=== PATIENT | male | born 1965 | race African-American/Black ===

== ENCOUNTER 2024-12-02 09:33 | Emergency (ER) | payer MEDICARE, MEDICAID, SELFPAY ==
[2024-12-02] VITALS (25 sets, daily range): BP systolic 152–200; BP diastolic 100–124; PULSE 67–89; RESP 11–29; TEMP 36.7; O2SAT 97–100
--- OUTSIDE RECORDS SUMMARY | 2024-12-02 10:15 | XMS_ITS | CONTINUITY OF CARE DOCUMENT ---
Author Name chayito jessicamyrtle Address Unknown Organization [facility] [facility] Address [address] [facility] [address] [place] [address] Phone [phone] Care Team Providers Care Supervisor Bit And Shank Department Name Role Phone Porter KLEIN, Kathy Unavailable [phone] Porter KLEIN, Selvinammaashli Unavailable [phone] ZOHAIB KLEIN, ROE Unavailable [phone] INSURANCE PROVIDERS Payer name Policy type / Coverage type [place] red libertarian ID [place] Medicare HEALTHCARE AND FAMILY SERVICES Medicaid 2 [id number] [place] [id number]
--- OUTSIDE RECORDS SUMMARY | 2024-12-02 12:15 | XMS_ITS | CONTINUITY OF CARE DOCUMENT ---
Author Name chayito jessicamyrtle Address Unknown Organization [place] [facility] Address [address] [facility] [address] [place] [address] Phone [phone] Care Team Providers Care Press Operator Printing Name Role Phone Porter KLEIN, Kathy Unavailable Porter KLEIN, Selvinammaashli Unavailable ZOHAIB KLEIN, ROE Unavailable [phone] INSURANCE PROVIDERS Payer name Policy type / Coverage type [place] red democrat ID [place] Medicare HEALTHCARE AND FAMILY SERVICES Medicaid 2 [id number] [place] [id number]
--- OUTSIDE RECORDS SUMMARY | 2024-12-02 12:15 | XMS_ITS ---
Author Organization [facility] Address [address] [place] [address] Care Team Providers Care Hypoid Gear Generator Name Role Phone NakulSuzette Primary Care Provider [phone] Vicky Jeanetteflorida Unavailable [phone] Allergies No Known Allergies Results Component Value Reference Range Notes Breathalyzer Reviewed date:11/18/2024 01:23:04 PM Interpretation: Performing Lab: Notes/Report: ELLEN 0.000 QuantiFERON-TB Gold Plus ([id number]) Reviewed date:11/23/2024 08:04:09 AM Interpretation:Normal Performing Lab:[facility] [place], [address] [facility], [place], Phone - [phone], Director - Sahra Notes/Report: QuantiFERON Incubation Incubation performed. QuantiFERON-TB Gold Plus Negative Negative No response to M tuberculosis antigens detected. Infection with M tuberculosis is unlikely, but high risk individuals should be considered for additional testing (ATS/IDSA/CDC Clinical Practice Guidelines, 2017). The reference range is an Antigen minus Nil result of <0.35 IU/mL. Chemiluminescence immunoassay methodology QuantiFERON Criteria QuantiFERON-TB Gold Plus is a qualitative indirect test for M tuberculosis infection (including disease) and is intended for use in conjunction with risk assessment, radiography, and other medical and diagnostic evaluations. The QuantiFERON-TB Gold Plus result is determined by subtracting the Nil value from either TB antigen (Ag) value. The Mitogen tube serves as a control for the test. QuantiFERON TB1 Ag Value 0.05 QuantiFERON TB2 Ag Value 0.05 QuantiFERON Nil Value 0.08 QuantiFERON Mitogen Value >10.00 12 Panel Urine Drug Screen Reviewed date:11/18/2024 12:51:23 PM Interpretation: Performing Lab: Notes/Report: THC neg ANOOP neg MOP (OPI) neg AMP neg MET neg BAR neg BZO neg MDMA neg MTD neg OXY neg PCP neg BUP neg REASON FOR VISIT MRU- Physical Medications Medication SIG (Take, Route, Frequency, Duration) Notes Start Date End Date Status hydroCHLOROthiazide 50 MG 1 tablet in th e morning Orally Once a day Active Pantoprazole Sodium 40 MG 1 tablet Orally Once a day Active FLUoxetine HCl 20 MG 1 capsule Orally On a day Active Social History Tobacco Use: Social History Observation Description Date Details (start date - stop date) Current Smoker NA - NA Tobacco Control (Standard) Question Answer Notes Tobacco use: Current every day smoker Additional Findings: Tobacco user Moderate cigar ette smoker (10-19 cigs/day) Problems Problem Type SNOMED Code ICD Code Onset Dates Problem Status W/U Status Risk Notes Problem Tobacco user (735068544) Nicotine dependence, unspecified, uncomplicated (F17.200) Active confirmed Vital Signs Weight 130.6 lbs 11/18/2024 Height 68.5 in 11/18/2024 BMI 19.57 kg/m2 11/18/2024 Blood pressure systolic 152 mm Hg 11/19/19 25 Blood pressure diastolic 94 mm Hg 025 Heart Rate 64 /min 11/18/2024 Oximetry 100 % 11/18/2024 Temperature 98.0 degrees Fahrenheit 11/19/19 25 Respiratory Rate 16 /min 11/18/2024 Encounters Encounter Location Date Provider Diagnosis [place] [address] [facility] [place] [address] 11/18/2024 Griselda Perry Routine general medical examination at a health care facility Z00.00 ; Tuberculosis screening Z11.1 and Nicotine dependence, unspecified, uncomplicated F17.200 Assessments Encounter Date Diagnosis (ICD Code) Assessment Notes Treatment Notes Treatment Clinical Notes Section Notes 11/18/2024 Routine general medical examination at a health care facility (ICD-10 - Z00.00) Stable for admission. Continue MRU protocol. Encouraged regular f/u with PCP for recommended screenings and physicals. 11/18/2024 Tuberculosis screening (ICD-10 - Z11.1) 11/18/2024 Nicotine dependence, unspecified, uncomplicated (ICD-10 - F17.200) Plan Of Treatment Treatment Notes Assessment Notes Routine general medical exam ination at a health care facility Stable for admission. Continue MRU protocol. Encouraged regular f/u with PCP for recommended screenings and physicals. Next Appt Details Follow Up: prn, Reason: Provider Name:Cortes Aleshia Destincyrus contreras, 12/06/2024 08:40:00 AM, [address] [place] [address] [address], [place], [address], Progress Notes * Matt MCKEONdDOB:1964 (59 yo M)Acc No.[id number]:11/18/2024 Patient: Prasanna AVELAR Provider: Rodolfo Perry, MSN, FOOD SAMPLER, PAINTER SKI EDGE-C :1965 A ge:59 Y S ex:Male Date:11/18/2024 Address:[address] [place] [address] [place], [facility] Pcp:Suzette Mota Subjective: * Chief Complaints: * M RU- Physical * HPI: H IV Risk Assessment Screening: Sexual Risk Behaviors: 1 . Are you sexually active? (If no skip question 2) N o HIV/AIDS/Hepatitis Risk Assessment 1 . Have you ever shared needles or equipment for injecting drugs, tattoos, or piercings with others? N o 2 . Have you ever had unprotected sex with someone you think might be infected with an STI or HIV (such as someone who injected drugs, who was diagnoed with or treated for an STI or hepatitis, has had mulitiple sex partners, or who has exchanged sex for drugs or money)? N o 3 . Have you ever had unprotected vaginal or anal intercourse with more than 1 sex partner? Y es 4 . Have you ever been diagnosed with or treated for an STI, hepatitis, or tuberculosis? Y es 5 . Have you ever had an unexplained fever or illness of unknown cause (not including the common cold)? N o 6 . Have you ever been told that you have an infection related to a weak immune system ? N o 7 . If YES to any of the above (including sexual risk behaviors), have you been tested in the past year for HIV/AIDS and/or Hepatitis C? Y es Encouraged HIV/AIDS and/or Hep C testing while in residential. Required for Residential Admits. D epression Screening: PHQ-9 L ittle interest or pleasure in doing things?More than half the days F eeling down, depressed, or hopeless N early every day T rouble falling or staying asleep, or sleeping too much S everal days F eeling tired or having little energy M ore than half the days P oor appetite or overeating S everal days F eeling bad about yourself or that you are a failure, or have let yourself or your family down M ore than half the days T rouble concentrating on things, such as reading the newspaper or watching television N early every day M oving or speaking so slowly that other people could have noticed; or the opposite, being so fidgety or restless that you have been moving around a lot more than usual M ore than half the days T houghts that you would be better off or of hurting yourself in some way N early every day (Consider Suicide Assessment Risk) T otal Score 1 9 I nterpretation M oderately Severe Depression S creening: Anza Suicide Severity Rating Scale (LF) D o you want to initiate with S creener form 1 . Wish to be : Have you wished you were or wished you could go to sleep and not wake up? N o 2 . Suicidal Thoughts: Have you actually had any thoughts of killing yourself? Y es 3 . Suicidal Thoughts with Method (without Specific Plan or Intent to Act): Have you been thinking about how you might do this? N o 4 . Suicidal Intent (without Specific Plan): Have you had these thoughts and had some intention of acting on them? N o 5 . Suicide Intent with Specific Plan: Have you started to work out or worked out the details of how to kill yourself? Do you intend to carry out this plan? N o 6 . Suicide Behavior Question: Have you ever done anything,started to do anything, or prepared to end your life? N o I nterpretation: L ow Risk D epression Screening PHQ9: c/o PHQ-2 (2015 Edition). PHQ9 D epression Screening Finding P ositive F ollow-up Depression W arm hand-off to staff C SSRS Interpretation and Follow Up Plan: CSSRS Interpretation and Follow Up Plan C SSRS Screen documented using SF Y es R isk Disposition from SF L ow - No Follow Up Plan Required F ollow Up Plan N o Follow Up Plan required at this time. S bridget: Mr. Mckeon presents for a routine physical. Will be admitted to the MRU today. Discharged from [facility] psychiatric unit earlier today. Drug of choice: cocaine - using 3 times per week with last use 13 days ago. Has primary care provider but does not recall name. * ROS: B asic ROS: Denies W eight loss or gain. D enies C hange in appetite. D enies S weats. I nsomnia D enies. A dmits A nxiety. A dmits?Depressed Mood. D enies S uicidal Thoughts. * Medical History: * Surgical History: Kemal rudd Past Surgical History * Hospitalization/Major Diagno stic Procedure: S I 11/2024 * Family History: F ather: , unknown cancer. M other: , diabetic. S iblings: , 1 brother who passed from CHF. 2 son(s) , 4 daughter(s) . . * Social History: P rimary Social History: L iving Arrangement L iving Arrangement: H omeless Alcohol Use A lcohol Use Frequency: N ever Illicit Substance Usage I llicit Substance Usage: Y es S ubstance Used: C ocaine F requency Cocaine is used: t hree times a week. I nterested in quitting: Y es Employment Status E mployment Status: O n Disability Single Question Alcohol Screening H ow may times in the past year have you had (4 for women, or 5 for men) or more drinks in a day? 3 T obacco Use: T obacco Control (Standard) T obacco use: C urrent every day smoker A dditional Findings: Tobacco user M oderate cigarette smoker (10-19 cigs/day) * Medications: T akingFLUoxetine HCl 20 MG Capsule 1 capsule Orally Once a day hydroCHLOROthiazide 50 MG Tablet 1 tablet in the morning Orally Once a day Pantoprazole Sodium 40 MG Tablet Delayed Release 1 tablet Orally Once a day Medication List reviewed and reconciled with the patientTaking FLUoxetine HCl 20 MG Capsule 1 capsule Orally Once a day Taking hydroCHLOROthiazide 50 MG Tablet 1 tablet in the morning Orally Once a day Taking Pantoprazole Sodium 40 MG Tablet Delayed Release 1 tablet Orally Once a day Medication List reviewed and reconciled with the patient * Allergies: N .K.D.A.no[Allergies Verified] Objective: * Vitals: I nitials: kb, Wt:130.6, Ht: 68.5, BMI:19.57, BP:152/94, HR:64, Oxygen sat %:100, Temp:98.0, RR:16, Pain scale:0. * Examination: A ctivity Permissions and Medication Self Administration: Activity Level & Medication Self-Administration Permissions? A ctivity Level Permitted: T he patient/client may fully take part in physical fitness programming including aerobic, muscular strength, and flexibility training without restriction. M edication Self-Administration Permissions:?Medications may be self-administered by the patient/client under the supervision of approved staff or administered by nursing staff. G eneral Examination: GENERAL APPEARANCE: i n no acute distress, thin. EYES: P ERRLA. EARS B OTH EARS, auditory canal clear, tympanic membrane intact, clear, light reflex present. SKIN: w arm and dry, no rashes. HEART: r egular rate and rhythm, S1, S2 normal. LUNGS: r espirations regular and easy, clear to auscultation bilaterally. ABDOMEN: b owel sounds present, soft, nontender, nondistended, no masses palpable. MUSCULOSKELETAL: R ANTONELLA upper and lower extremities. EXTREMITIES: n o edema, missing thumb and little finger to left hand due to previous injury. PERIPHERAL PULSES: n ormal. NEUROLOGIC: g ait normal. PSYCH: s peech clear, alert, oriented x4, cooperative with exam, thought process logical, goal directed. Assessment: * Assessment: 1. R outine general medical examination at a health care facility - Z00.00 (Primary) 2 . T uberculosis screening - Z11.1 3 . N icotine dependence, unspecified, uncomplicated - F17.200 Plan: * Treatment: Value Reference Range T HC neg * C OC neg * M OP (OPI) neg * A MP neg * M ET neg * B AR neg * B ZO neg * M DMA neg * M TD neg * O XY neg * P CP neg * B UP neg ?LAB: Breathalyzer (Collection Date & Time - 11/18/2024 01:22 PM) Notes: Stable for admission. Continue MRU protocol. Encouraged regular f/u with PCP for recommended screenings and physicals.?? 2.?Tuberculosis screening?LAB: QuantiFERON-TB Gold Plus ([id number]) (Collection Date & Time - 11/18/2024) * Recommended Wellness and Pre vention Guidelines: * S tat A phong L ast Done N ext Due A ction Taken N ONCOMPLIANT C olorectal cancer screening - 0 11/18/2024 - N ONCOMPLIANT H IV screening - 0 11/18/2024 - * Procedure Codes: 9 9000 SPECIMEN [id number] BEHAV CHNG SMOKING 3-10 [id number] TB TEST, CELL IMMUN MEASURE * Preventive Medicine: Counseling: S MOKING: Patient counselled on the dangers of tobacco use and urged to quit. . * Follow Up: p rn * * Sign off status: Completed true * Provider: Rodolfo Perry, MSN, FOOD SAMPLER, PAINTER SKI EDGE-C Date: 0 11/18/2024 Generated for Chapo smith/Kermit/eTransmitting on: 0 12/02/2024 12:14 PM CDT History and Physical Notes * HPI (History of Present Illness) Category Sub-Category Detail Notes Category Not es Depression Screening PHQ9 PHQ9 Depres fiorella Screening Finding: Positive Follow-up Depression: Warm hand-off to B H staff Depression Screening PHQ-9 Little inte rest or pleasure in doing things: More than half the days Feeling down, depressed, or hopeless: Ne blake every day Trouble falling or staying asleep, or sl eeping too much: Several days Feeling tired or having little energy: M ore than half the days Poor appetite or overeating: Several day s Feeling bad about yourself o r that you are a failure, or have let yourself or your family down: More than half the days Trouble concentrating on thi ngs, such as reading the newspaper or watching television: Nearly every day Moving or speaking so slowly that other people could have noticed; or the opposite, being so fidgety or restless that you have been moving around a lot more than usual: More than half the days Thoughts that you would be b tanya off or of hurting yourself in some way: Nearly every day (Consider Suicide Assessment Risk) Total Score: 19 Interpretation: Moderately Severe Depres fiorella Summary Mr. Mckeon presents for a routine physical. Will be admitted to the MRU today. Discharged from [facility] psychiatric unit earlier today. Drug of choice: cocaine - using 3 times per week with last use 13 days ago. Has primary care provider but does not recall name. Screening Anza Suicide Severity Rating Scale (LF) Do you want to initiate with: Screener form 1. Wish to be : Have you wished you were or wished you could go to sleep and not wake up?: No 2. Suicidal Thoughts: Have you actually had any thoughts of killing yourself?: Yes 3. Suicidal Thoughts with Method (without Specific Plan or Intent to Act): Have you been thinking about how you might do this?: No 4. Suicidal Intent (without Specific Plan): Have you had these thoughts and had some intention of acting on them?: No 5. Suicide Intent with Specific Plan: Have you started to work out or worked out the details of how to kill yourself? Do you intend to carry out this plan?: No 6. Suicide Behavior Question: Have you ever done anything,started to do anything, or prepared to end your life?: No Interpretation:: Low Risk HIV Risk Assessment Screening Sexual Risk Behaviors: 1. Are you sexually active? (If no skip question 2): No Required for Residential Admits HIV/AIDS/Hepatitis Risk Assessment 1. Scott ve you ever shared needles or equipment for injecting drugs, tattoos, or piercings with others?: No 2. Have you ever had unprote cted sex with someone you think might be infected with an STI or HIV (such as someone who injected drugs, who was diagnoed with or treated for an STI or hepatitis, has had mulitiple sex partners, or who has exchanged sex for drugs or money)?: No 3. Have you ever had unprote cted vaginal or anal intercourse with more than 1 sex partner?: Yes 4. Have you ever been diagno sed with or treated for an STI, hepatitis, or tuberculosis?: Yes 5. Have you ever had an unex plained fever or illness of unknown cause (not including the common cold)?: No 6. Have you ever been told t hat you have an infection related to a weak immune system ?: No 7. If YES to any of the abov e (including sexual risk behaviors), have you been tested in the past year for HIV/AIDS and/or Hepatitis C?: Yes Encouraged HIV/AIDS and/or Hep C testing while in residential. CSSRS Interpretation and Follow Up Plan CSSRS Interpretation and Follow Up Plan CSSRS Screen documented using SF: Yes Risk Disposition from SF: Low - No Follo w Up Plan Required Follow Up Plan: No Follow Up Plan requir ed at this time. Examination Category Sub-Category Detail Notes Category Not es General Examination GENERAL APPEARANCE: in no acute di stress, thin EYES: PERRLA EARS BOTH EARS, auditory canal clear, tympanic membrane intact, clear, light reflex present HEART: regular rate and rhy thm, S1, S2 normal LUNGS: respirations regular and easy, clear to auscultation bilaterally ABDOMEN: bowel sounds present , soft, nontender, nondistended, no masses palpable NEUROLOGIC: gait normal SKIN: warm and dry, no alec hes EXTREMITIES: no edema, missing th umb and little finger to left hand due to previous injury PERIPHERAL PULSES: normal MUSCULOSKELETAL: ALEKSANDR upper and lower extremities PSYCH: speech clear, alert, oriented x4, cooperative with exam, thought process logical, goal directed Activity Permissions and Medication Self Administration Activity Level & Medication Self-Administration Permissions Activity Level Permitted:: The patient/client may fully take part in physical fitness programming including aerobic, muscular strength, and flexibility training without restriction. Medication Self-Administrati on Permissions:: Medications may be self- administered by the patient/client under the supervision of approved staff or administered by nursing staff.
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
--- NOTE | 2024-12-02 13:30 | ED_ITS ---
HPI - General Adult General Chief complaint: Recheck/Abnormal Lab/Rx Stated complaint: elevated blood pressure Time Seen by Provider: 12/02/24 10:53 History of Present Illness HPI narrative: This is a 59-year-old male presenting from [facility] for elevated blood pressures. He was found have elevated blood pressures on his psych appointment. They then sent him to the ED for evaluation. Patient is currently asymptomatic and does not have any chest pain difficulty breathing or neurologic symptoms. Related Data Allergies Allergy/AdvReac Type Severity Reaction Status Date / Time No Known Allergies Allergy Verified 12/02/24 13:30 Exam Narrative: APPEARANCE: No apparent distress. Head: atraumatic. EYES: EOMI, NOSE: Atraumatic NECK: Trachea midline RESPIRATORY: No increased rate of breathing CTAB CARDIOVASCULAR: RRR, no peripheral edema ABDOMINAL: Non-distended soft nontender MUSCULOSKELETAl: No obvious deformities NEURO: Alert. Cranial nerves 2-12 grossly intact. Sensation light touch, motor function cerebellar function intact for 4 extremities. Gait exam was normal. SKIN:: Warm, dry. Normal color PSYCHIATRIC: Normal affect Course Vital Signs Vital signs: Vital Signs Temperature 98.1 F 12/02/24 09:37 Pulse Rate 80 12/02/24 09:37 Respiratory Rate 17 12/02/24 09:37 Blood Pressure 200/124 H 12/02/24 09:37 Pulse Oximetry 100 12/02/24 09:37 Oxygen Delivery Room Air 12/02/24 09:37 Temperature 98.1 F 12/02/24 09:37 Pulse Rate 74 12/02/24 11:16 Respiratory Rate 23 H 12/02/24 11:16 Blood Pressure 165/110 H 12/02/24 11:16 Pulse Oximetry 100 12/02/24 11:16 Oxygen Delivery Room Air 12/02/24 09:37 Medical Decision Making MDM Narrative Medical decision making narrative: -Course: 59-year-old male presenting for asymptomatic hypertension. Patient be started on amlodipine and can follow up with primary care physician. Given return precautions. -DDX includes but is not limited to: Asymptomatic hypertension, hypertension urgency or emergency -Co-morbidities complicating care: Hypertension Vital Signs Vital Signs: Vital Signs Temperature 98.1 F 12/02/24 09:37 Pulse Rate 80 12/02/24 09:37 Respiratory Rate 17 12/02/24 09:37 Blood Pressure 200/124 H 12/02/24 09:37 Pulse Oximetry 100 12/02/24 09:37 Oxygen Delivery Room Air 12/02/24 09:37 Temperature 98.1 F 12/02/24 09:37 Pulse Rate 74 12/02/24 11:16 Respiratory Rate 23 H 12/02/24 11:16 Blood Pressure 165/110 H 12/02/24 11:16 Pulse Oximetry 100 12/02/24 11:16 Oxygen Delivery Room Air 12/02/24 09:37 Discharge Plan Discharge Clinical Impression: Asymptomatic hypertension Patient Disposition: Home, Self-Care Condition: Stable Instructions: Antibiotic Form, Hypertension (ED) Additional Instructions: Please follow-up with your primary care physician for further management. Return if you develop chest pain difficulty breathing would like re-evaluation. Patient Language: Maltese Prescriptions: New amlodipine 5 mg tablet 5 mg PO DAILY Qty: 30 0RF Follow-up/Referrals: UNKNOWN,DOCTOR [Primary Care Provider] -
[2024-12-02] MEDS: amLODIPine BESYLATE 5 MG TABLET PO (13:36)
== END 2024-12-02 13:49 | disposition home or self-care (01) ==
PROVIDERS: Emergency Provider Emergency Medicine
DX: I10 Essential (primary) hypertension (principal)
CPT/HCPCS: 99283; A9270